=== PATIENT | male | born 1970 | race Caucasian/White ===

== ENCOUNTER 2017-07-12 18:00 | Emergency (ER) | payer MEDICARE, MEDICAID ==
[~2017-07-12] VITALS: Ht 177.8 cm; Wt 84.0 kg
[~2017-07-12 18:00] MED LIST: PREG100C PO; TRIUMEQ PO
[2017-07-12 18:03] VITALS: BP 193/128
[2017-07-12] MEDS ORDERED: proparacaine 0.5% ophthalmic drops 15ml EACHEYE ONE (18:10)
[2017-07-12] MEDS ORDERED: ERYT1OIN6 EACHEYE (18:57)
[2017-07-12] MEDS ORDERED: HYDR-565 PO (19:08)
== END 2017-07-12 19:24 | disposition home or self-care (01) ==
LOC: ER 18:01
DX: S05.01XA Injury of conjunctiva and corneal abrasion without foreign body, right eye, initial encounter (principal); I10 Essential (primary) hypertension; Z88.8 Allergy status to other drugs, medicaments and biological substances; Z79.899 Other long term (current) drug therapy; X58.XXXA Exposure to other specified factors, initial encounter; Y93.89 Activity, other specified; Y92.89 Other specified places as the place of occurrence of the external cause; Y99.8 Other external cause status
CPT/HCPCS: 99283; J7030